=== PATIENT | female | born 1980 | race Caucasian/White ===

== ENCOUNTER 2019-12-28 12:33 | Observation (INO) ==
[2019-12-28 13:15] LABS: BASO# 0.07 X1000 (0.0-0.2); BASO% 0.7 % (0.0-0.8); EOS# 0.23 X1000 (0.0-0.7); EOS% 2.4 % (0.0-10.0); HEMATOCRIT 17.9 % (37.0-47.0); LYMPH% 31.9 % (20.5-51.1); MCH 26.8 PG (27-31); MCHC 29.1 g/dL (33-37); MCV 92.3 FL (81-99); MONO# 0.93 X1000 (0.11-0.59); MONO% 9.7 % (1.7-9.3); MPV 10.1 FL (7.4-10.4); NEUT# 5.25 X1000 (1.4-6.5); PLT 311 X1000 (130-400); RBC 1.94 XMIL (4.2-5.4); RDW 13.7 % (11.5-14.5); WBC 9.56 X1000 (4.8-10.8)
[2019-12-28 13:16] LABS: IMM GRAN# 0.03 X1000 (0.0-0.04); IMM GRAN% 0.3 % (0.0-0.5); LYMPH# 3.05 X1000 (1.2-3.4)
[2019-12-28] MEDS ORDERED: NS 500 ML IV ONE (13:19)
[2019-12-28 13:22] LABS: HEMOGLOBIN 5.2 g/dL (12.0-16.0)
[2019-12-28 13:23] LABS: AGAP 9; ALBUMIN 3.4 g/dL (3.5-5.0); ALKALINE PHOSPHATASE 50 U/L (32-104); BUN 11 mg/dL (8-22); CALCIUM 8.2 mg/dL (8.8-10.2); CHLORIDE 104 mmol/L (98-107); COSMO 278; CREATININE 0.7 mg/dL (0.5-0.9); ESTIMATED GFR > 60; GLUCOSE 117 mg/dL (70-104); GOT 15 U/L (10-30); GPT 9 U/L (10-36); POTASSIUM 4.1 mmol/L (3.5-5.1); SODIUM 139 mmol/L (136-145); TCO2 26 mmol/L (25-35); TOTAL BILIRUBIN < 0.15 mg/dL (0.20-1.00); TOTAL PROTEIN 5.9 g/dL (6.3-8.3)
[2019-12-28 13:37] LABS: ANISOCYTOSIS 1+; EOS 1 % (1-10); HYPOCHROM 2+; LYMPHS 33 % (21-51); MONO 2 % (1-9); POLYCHROM 1+; SEGS 64 % (42-75)
[2019-12-28 13:38] LABS: MICROCYTOSIS 1+
[2019-12-28] MEDS ORDERED: ZOFRAN IV PRN (13:42)
[2019-12-28] MEDS ORDERED: TYLENOL PO PRN (13:42)
[2019-12-28 14:20] LABS: INR 0.93; PROTIME 12.9 Seconds (11.0-16.0)
--- NOTE | 2019-12-28 14:40 | Diag Imaging Result Doc PS360 ---
EXAM: CT ABD/PELVIS W/IV CONT ONLY INDICATION: abd pain, low H H TECHNIQUE: This exam was performed using automated exposure control, adjustment of mA or kV according to patient size, and/or use of iterative reconstruction technique. COMPARISON: 05/09/2013 FINDINGS: There has been a prior cholecystectomy. There are bulky calcified granulomata in the spleen. There is no splenomegaly. The liver, pancreas, and adrenal glands are essentially unremarkable. There are multiple renal cysts, many of which can be seen on the previous unenhanced study. There are several nonobstructing intrarenal stones bilaterally. There is no hydronephrosis. The urinary bladder is grossly unremarkable. The reproductive tract is unremarkable as imaged. There is no evidence of appendicitis. No focal bowel wall thickening or bowel obstruction is appreciated. The remainder of the GI tract is grossly unremarkable. No focal inflammatory changes, free abdominal gas, or free fluid is identified. There is no evidence of acute osseous abnormality. IMPRESSION: 1.Bilateral nonobstructive nephrolithiasis. 2.Other incidental/nonacute findings detailed above. No definite acute pathology by CT. Electronically signed by Caesar Patten 12/28/2019 2:38 PM
[2019-12-28] MEDS ORDERED: ZOFRAN IV ONE (14:41)
[2019-12-28] MEDS ORDERED: MORPHINE IV ONE (14:41)
[2019-12-28 16:09] LABS: OCCULT BLOOD 1 POSITIVE (NEGATIVE); URINE SOURCE CATH
--- NOTE | 2019-12-28 16:11 | HISTORY AND PHYSICAL ---
PRIMARY CARE PROVIDER: Out [facility] OB is Screws. CHIEF COMPLAINT: Patient was called by her doctor for abnormal blood work. HPI: Miss Kim is a 39-year-old female who reports for the last 5 weeks she has been having heavy periods soaking 2 pads frequently, chronic back pain followed by the Pain Clinic, borderline diabetes. Workup in the ED found an hemoglobin and hematocrit of 5 and 17. She was typed and screened will give 2 units of blood and transfer to [facility] for FEEDER WORKER POWER UNIT OPERATOR care. PAST MEDICAL HISTORY: 1. Chronic low back pain followed by the Pain Clinic. 2. Borderline diabetes. PAST SURGICAL HISTORY: Left foot surgery, cholecystectomy, tubal, kidney stone removal. HOME MEDICATIONS: [place], meloxicam, vitamin D. SOCIAL HISTORY: She is going through a divorce, she has 2 children. No tobacco, alcohol or illicit drug use. FAMILY HISTORY: Negative for coronary disease, negative for cancer, father with diabetes. REVIEW OF SYSTEMS: Twelve-point review of systems completely negative except for the items mentioned in HPI. There is no fever no chills, no headache, no shortness of breath, no cough, no sore throat, no recent travel out of country. She has not been around anybody who has traveled out of the country or in the country. No chest pain, no shortness of breath. She is having some abdominal cramps, some generalized weakness. No nausea, vomiting. DIAGNOSTIC DATA: Abdomen and pelvis CT showed bilateral nonobstructive nephrolithiasis . LABORATORY DATA: White count 9, hemoglobin and hematocrit 5 and 17, platelet count is 311,000. Sodium 139, potassium 4.1, BUN 11, creatinine 0.7, blood glucose is 117. ASSESSMENT/PLAN: 1. Menorrhea. Patient's hemoglobin and hematocrit is 5 and 17. She has been intermittently bleeding for the last 5 weeks. She will be given 2 units of blood and sent to [facility] for FEEDER WORKER POWER UNIT OPERATOR assistance. 2. Severe anemia secondary to #1, again, patient has been transfused will be given 2 units. 3. Chronic low back pain followed by Pain Clinic. 4. Borderline diabetes sugars controlled at this time. 5. Further recommendation to follow physician evaluation, laboratory and diagnostic data. Dictated by EH Valentine for Jaime Rosario MD cc: Jaime Rosario MD
[2019-12-28 16:17] LABS: UR EPITHELIAL CELLS <10 /HPF (<10); URINE BACTERIA NEGATIVE /HPF; URINE RBC <10 /HPF (<10); URINE WBC <10 /HPF (<10)
[2019-12-28 16:18] LABS: BILIRUBIN URINE NEGATIVE (NEGATIVE); COLOR YELLOW; GLUCOSE URINE NEGATIVE (NEGATIVE); TURBIDITY URINE CLEAR (CLEAR)
[2019-12-28 16:22] LABS: KETONE URINE NEGATIVE (NEGATIVE)
[2019-12-28 16:23] LABS: BLOOD URINE TRACE (NEGATIVE); LEUKOCYTES URINE NEGATIVE (NEGATIVE); NITRITE URINE NEGATIVE (NEGATIVE); PH URINE 6.5; PROTEIN URINE 20 mg/dL (NEGATIVE); UROBILINOGEN URINE NORMAL (NORMAL)
--- NOTE | 2019-12-28 16:23 | PROVIDER DOCUMENTATION ---
This chart was entered by Idania Cummings Scribe, acting as scribe for Man Wagoner CRNP. HPI-General Adult - General Chief Complaint: Abnormal Lab[s] Stated Complaint: LOW BLOOD - SENT BY Time Seen by Provider: 12/28/19 12:46 Source: patient Allergies/Adverse Reactions: Patient Allergies Allergy/AdvReac Type Severity Reaction Status Date / Time No Known Allergies Allergy Verified 12/28/19 13:03 Home Medications: Home Medication List Medication Instructions Recorded Confirmed Last Taken Type Hydrocodone/Acetaminophen [Max 1 tab PO Q6H PRN PRN #12 tablet 07/28/18 12/28/19 Unknown Rx 7.5-325 Tablet] Meloxicam [Mobic] 1 tab PO DAILY 12/28/19 12/28/19 Unknown History - History of Present Illness -Gen Adult Nature of Presenting Problems: 39 yowf presents to the ed per dr fletcher instruction for intermittent vaginal bleeding for 5 weeks and a HH 5.2 pt reports she was seeing dr phan but she left the practice and does not have a forestry and wildlife manager now. pt sts she was placed on BC which did not improve the vaginal bleeding Location of Pain/Injury: reports: abdomen Quality of Pain: reports: aching Severity: reports: mild Onset/Duration: reports: other (5 weeks) Timing: reports: still present, intermittent Context/Activities at Onset: reports: light activity Modifying Factors: improves with: nothing Associated Symptoms: reports: denies symptoms Similar Symptoms Previously?: Yes Recently seen or treated by another doctor?: Yes (forestry and wildlife manager and dr voss PMD) Review of Systems - Adult - REVIEW OF SYSTEMS - ADULT Constitutional: denies: chills, fever Eyes: reports: no symptoms reported Ears, Nose, Mouth & Throat: reports: no symptoms reported Cardiovascular: denies: chest pain, palpitations Respiratory: denies: cough, shortness of breath, wheezing Gastrointestinal: reports: see HPI, abdominal pain. denies: diarrhea, nausea, vomiting Genitourinary: reports: other (vaginal bleeding) Musculoskeletal: denies: back pain, neck pain Integumentary: reports: no symptoms reported Neurological: denies: dizziness/vertigo, headache/migraines Psychiatric: reports: no symptoms reported Endocrine: reports: no symptoms reported Hematologic/Lymphatic: reports: see HPI, low blood count Allergic/Immunologic: reports: no symptoms reported All Other Systems: Reviewed and Negative Past History - Adult - PAST MEDICAL HISTORY-ADULT Review of Records: reports: Old Records Reviewed, Nursing Assessment Review, Medications Reviewed, Social history reviewed & non-contributory. Major Childhood Illnesses: reports: denies history Cardiovascular: reports: denies history Respiratory: reports: denies history Gastrointestinal: reports: denies history Obstetrical/Gynecological: reports: denies history Genitourinary: reports: kidney stones Musculoskeletal: reports: chronic pain Neurological: reports: other (neuropathy in feet) Psychiatric: reports: anxiety, depression Endocrine/Immune: reports: Diabetes Diabetes Type: Type 2 Other Conditions: reports: denies history - PRIOR SURGERIES/PROCEDURES Surgical/Procedure History: reports: cholecystectomy, orthopedic (extremity) - PRIOR HOSPITALIZATIONS Prior Hospitalizations: reports: none - IMMUNIZATION STATUS Childhood Immunizations: See Nurse Assessment Flu Vaccine: See Nurse Assessment - FAMILY HISTORY Family History: reviewed, not pertinent - SOCIAL HISTORY Smoking: denies Substance Use: denies Alcohol Use Frequency: never Living Situation: family Physical Exam-General - PHYSICAL EXAM-ADULT Initial Vital Signs Reviewed: Yes - CONSTITUTIONAL General Appearance: appears well, alert, no apparent distress (nontoxic in apearance), obese - EYES Eyes: PERRL/EOMI, pink conjunctivae - HEAD, EARS, NOSE, MOUTH & THROAT HENMT: moist mucous membranes - NECK Neck: non-tender, full range of motion, supple, normal inspection - RESPIRATORY Respiratory: chest non-tender, lungs clear, normal breath sounds - CARDIOVASCULAR Cardiovascular: normal peripheral pulses, tachycardia (105) - CHEST (BREASTS) Chest/Breast: deferred - GASTROINTESTINAL (ABDOMEN) Abdominal Exam: normal bowel sounds, non tender, soft, tenderness (left suprapaubic). negative: guarding, rigid, rebound - GENITOURINARY Female Genitalia/Pelvic Exam: external exam normal, active bleeding, blood, other (large clots and heavy active bleeding). negative: herpes-like ulcerations Rectal Exam: normal exam, normal rectal tone. negative: hemorrhoids, mass, tenderness Hemoccult Exam: heme positive stool - LYMPHATIC Lymphatic: no adenopathy - MUSCULOSKELETAL Back Exam: no CVA tenderness, no vertebral tenderness Extremity: normal range of motion, non-tender, normal gait, normal inspection - SKIN Integumentary: warm/dry, pallor - NEUROLOGIC Neurologic: grossly normal - PSYCHIATRIC Psych/Mental Status: normal mood/affect, normal thought content, normal thought process, oriented x 3 Progress - PLAN OF CARE/RESULTS Progress/Plan/Lab Results: Vital Signs - 8 hr 12/28/19 12:38 Temperature 98 F Pulse Rate 105 H Respiratory Rate 18 Blood Pressure 99/68 O2 Sat by Pulse Oximetry 100 Orders Category Date Time Status CT ABD/PELVIS W/IV CONT ONLY [CT] Stat Exams 12/28/19 13:03 Ordered CBC WITH DIFF [HEME] Stat Lab 12/28/19 12:55 Results COMPREHENSIVE METABOLIC PANEL [CHEM] Stat Lab 12/28/19 12:55 Received TYPE & SCREEN [BBK] Stat Lab 12/28/19 12:55 Received URINALYSIS W/POSS RFLX CULT [URINALYSIS] Stat Lab 12/28/19 12:48 Uncollected Result Diagrams: 12/28/19 12:55 12/28/19 12:55 - REASSESSMENT Reassessment #1 Time Reassessed: 14:49 (Pt tolerated vaginal bleeding well. Made aware of need for admission. ) - CT/MRI 1 CT Study: Abdomen, Pelvis Impression: See EMR Report (EXAM: CT ABD/PELVIS W/IV CONT ONLY INDICATION: abd pain, low H H TECHNIQUE: This exam was performed using automated exposure control, adjustment of mA or kV according to patient size, and/or use of iterative reconstruction technique. COMPARISON: 05/09/2013 FINDINGS: There has been a prior cholecystectomy. There are bulky calcified granulomata in the spleen. There is no splenomegaly. The liver, pancreas, and adrenal glands are essentially unremarkable. There are multiple renal cysts, many of which can be seen on the previous unenhanced study. There are several nonobstructing intrarenal stones bilaterally. There is no hydronephrosis. The urinary bladder is grossly unremarkable. The reproductive tract is unremarkable as imaged. There is no evidence of appendicitis. No focal bowel wall thickening or bowel obstruction is appreciated. The remainder of the GI tract is grossly unremarkable. No focal inflammatory changes, free abdominal gas, or free fluid is identified. There is no evidence of acute osseous abnormality. IMPRESSION: 1.Bilateral nonobstructive nephrolithiasis. 2.Other incidental/nonacute findings detailed above. No definite acute pathology by CT. Electronically signed by Caesar Patten 12/28/2019 2:38 PM) - CONSULTS/PCP/HOSPITALIST Notification #1 *Consult/PCP/Hospitalist*: Dr Feliciano Time Discussed: 13:30 Consult Disposition: Will see in ED, Admit #2 Consult: Dr Monet Time Discussed: 14:48 (states to consult her. No further recommendations) Consult Disposition: Admit Departure - Departure Date of Disposition Decision: 12/28/19 Time of Disposition Decision: 14:44 DIAGNOSIS: Vaginal bleeding, Low hemoglobin and low hematocrit Disposition: ADMITTED INPATIENT 09 Certified Medical Emergency: Emergent Condition: Fair - Critical Care Note This patient required my direct & personal management of CC.: Yes Total Time (mins): 36 Critical Care Statement: This patient required my direct personal management to treat or rule out processes, the absence of which, could potentiallly result in sudden, clinically significant life or limb threatening deterioration. Attestation - Physician/ MANUEL Attestation Patient care was provided by Advanced Practice Provider:: Yes Advanced Practice Provider:: Man Wagoner Advanced Practice Provider documentation review:: The Mid-level provider documentation, treatment plan and medical decision making was reviewed by the physician who agrees with all treatment and medical decision making by the MLP. The physician spent face to face time with patient:: No Advanced Practice Provider documentation review:: Supervising physician onsite and consulted in the evaluation and care of this patient. The physician did not have a face to face encounter with the patient. This chart was documented by the indicated scribe, (Idania Cummings Scribe) and accurately reflects the services I performed and decisions made by me, Man Wagoner CRNP, as attested by the provider's signature.
[2019-12-28] MEDS: NORCO-7.5 PO PRN (17:39)
[2019-12-28] MEDS ORDERED: NS 500 ML ONE (17:59)
[2019-12-28] MEDS: PROMETRIUM PO SCH ×2 (19:53→23:08)
--- NOTE | 2019-12-28 20:11 | CONSULTATION ---
DATE OF CONSULTATION: 12/28/2019 Ms. Kim is a 39-year-old female that was admitted to the ER with vaginal bleeding and anemia. The patient states that her period started about 5 weeks ago and has not stopped. Her period has been regular until a few months ago. She was evaluated by NURSERY SUPERVISOR with a biopsy that was negative and started on control pills but pills did not work on. However, she has not seen another COAT ROOM ATTENDANT since. The patient presented to the ER. Hemoglobin was 5.2. She was given a blood transfusion. She denies any pain. She did note a lot of clots and cramping when her bleeding occurs. Presently, she is not acutely bleeding. PAST MEDICAL HISTORY: She denies except having kidney stones. PAST SURGICAL HISTORY: She has had left foot surgery, kidney stones. SOCIAL HISTORY: She does not smoke. No alcohol. MEDICATIONS: She takes vitamin D, [place] and nonsteroidal for back pain. Vital signs: Temperature is 98.6 degrees, blood pressure is 121/68, pulse of 78 . HEENT: Unremarkable. Her abdomen was benign, no guarding, no rebound. Pelvic exam deferred per patient. She was examined in the ER she stated and did not want to be examined at this time since she is bleeding. Extremities: Negative. LABORATORY DATA: Per chart. ASSESSMENT: 39-year-old female with perimenopausal bleeding which is what I suspect. Negative workup in the past, failed control pills. Today I will start her on some Methergine. No contraindication to these medicines. She can stay on it for 3 days p.o. and in addition started Prometrium 200 mg at bedtime. I recommended that she follow up with Dr. Kamara and her team for gynecology followup. Possible ablation, IUD for another method of treatment. For discharge she will continue on the Prometrium and Methergine as needed Methergine for up to 3 days and the Prometrium until followup for her COAT ROOM ATTENDANT appointment. CAT scan reviewed and no mention of uterus size. Radiologist taking a 2nd look at this report to follow. cc: MD BLAKE Moss
--- NOTE | 2019-12-29 00:17 | HISTORY AND PHYSICAL ---
ADDENDUM: Patient is a 39-year-old female who presented to the hospital with significant vaginal bleeding for the past 5 weeks. She does not currently have a vibrator equipment tester. She is anemic. We are going to admit her, transfuse. We will discuss with Gynecology further options and we will follow. Currently, she is awake, alert. She is safe and in no distress. cc: Jaime Rosario MD
[2019-12-29] MEDS: NORCO-7.5 PO PRN ×4 (04:07→23:19)
[2019-12-29 06:46] LABS: HEMATOCRIT 22.7 % (37.0-47.0); HEMOGLOBIN 6.9 g/dL (12.0-16.0); MCH 27.5 PG (27-31); MCHC 30.4 g/dL (33-37); MCV 90.4 FL (81-99); MPV 10.6 FL (7.4-10.4); RBC 2.51 XMIL (4.2-5.4); RDW 13.6 % (11.5-14.5); WBC 8.15 X1000 (4.8-10.8)
[2019-12-29 06:52] LABS: INR 1.08; PROTIME 14.1 Seconds (11.0-16.0)
[2019-12-29 06:55] LABS: AGAP 6; ALB/GLOB RATIO 1.2; ALKALINE PHOSPHATASE 50 U/L (32-104); BUN 9 mg/dL (8-22); CALCIUM 7.6 mg/dL (8.8-10.2); CHLORIDE 107 mmol/L (98-107); COSMO 280; CREATININE 0.6 mg/dL (0.5-0.9); ESTIMATED GFR > 60; GLUCOSE 101 mg/dL (70-104); GOT 11 U/L (10-30); GPT 8 U/L (10-36); POTASSIUM 4.3 mmol/L (3.5-5.1); SODIUM 141 mmol/L (136-145); TCO2 28 mmol/L (25-35); TOTAL BILIRUBIN 0.16 mg/dL (0.20-1.00); TOTAL PROTEIN 5.5 g/dL (6.3-8.3)
[2019-12-29] MEDS ORDERED: NS 500 ML IV ONE (10:24)
[2019-12-29] MEDS ORDERED: CAFFEINE/SODIUM BENZOATE 500 MG in NS 1,000 ML IV ONE (11:00)
--- NOTE | 2019-12-29 11:28 | PROGRESS NOTE ---
DATE: 12/29/2019 SUBJECTIVE: Patient reports she is bleeding. She received 2 units of blood. Hemoglobin is very low 6.9. No other complaints noted. OBJECTIVE: Vital Signs: Temperature 98.2 degrees, heart rate 86, respiratory 16 blood pressure 103/54, O2 saturation 99% on room air. General: This is a 39-year-old female lying in bed, in no acute distress. Cardiovascular: S1, S2 heard. No murmurs, gallops, or rubs. Regular rate and rhythm. Respiratory: Clear bilaterally to auscultation. No work of breathing or using accessory muscles. Abdomen: Soft, nontender to palpation. Bowel sounds present. No organomegaly. No clubbing cyanosis or edema. Peripheral pulses present in both legs. Neurological: Patient alert and oriented x3. Moves 4 extremities. LABORATORY DATA: Reviewed. ASSESSMENT AND PLAN: 1. Menorrhea. Her hemoglobin was 5.0 at admission and after 2 units of blood hemoglobin is still low of 6.9. We are going to transfuse 1 unit of blood. We will check hemoglobin tomorrow. Because she is still bleeding we will continue to keep this patient here in the hospital. Patient is on progesterone. We will continue to monitor. 2. Severe anemia secondary to condition #1. We are transfusing 1 unit of blood. 3. Chronic low back pain. Evaluated by the pain clinic. 4. Four borderline diabetes. Sugars are well controlled at this time. DISPOSITION: We will continue current management. cc: Keyshawn Calderon MD
[2019-12-29] MEDS: METHERGINE PO SCH ×3 (11:49→18:39)
--- NOTE | 2019-12-29 17:45 | CONSULTATION ---
DATE OF CONSULTATION: 12/29/2019 HISTORY OF PRESENT ILLNESS: The patient is a 39-year-old white female, G2, P2, who presents to the emergency room after having a bleeding episode that encompassed 5 weeks total. The patient reports one other time that she has had this type of heavy bleeding and that was about 3 months ago. PAST MEDICAL HISTORY: Significant for chronic back pain. PAST SURGICAL HISTORY: Significant for cholecystectomy, left foot surgery, bilateral tubal ligation, and right kidney stone removal. MUD TANK OPERATOR HISTORY: Menarche at age 11. PAST OBSTETRIC HISTORY: G2, P2. Spontaneous vaginal delivery x2. REVIEW OF SYSTEMS: All systems reviewed and noncontributory. FAMILY HISTORY: Significant for diabetes mellitus. SOCIAL HISTORY: Tobacco use none. Alcohol use none. MEDICATIONS: 1. [place] 7.5 mg for chronic back pain. 2. Meloxicam for problems with her feet. ALLERGIES: No known drug allergies. PHYSICAL EXAMINATION: Vital Signs: Height 5 feet 6 inches, weight 265 pounds. Temperature 98 degrees, blood pressure 121/68, pulse 88, respirations 16. HEENT: Pupils equal, round, reactive to light and accommodation. Extraocular movements intact. Oropharynx clear. Neck: Supple. No thyromegaly. Lungs: Clear to auscultation. Heart: Regular rate and rhythm. Abdomen: Obese, nontender. Patient with mild lower abdominal discomfort to deep palpation. Pelvic: On pelvic, bimanual was performed and this revealed some blood in the vaginal vault, but could not determine if the uterus was significantly enlarged due to the patient's body habitus. Unable to appreciate any adnexal masses nor pain. Extremities: Mild lower extremity edema was noted. The patient had a CT scan that remarked on the normal uterus and normal ovaries. LABORATORY STUDIES: Her initial hemoglobin was 5.2. She was transfused 2 units and then improved to 6.9 hemoglobin, but reports still having some bleeding, and the hospitalist is going to transfuse more blood. Dr. Monet had initiated progesterone and Methergine, and will continue at the present time. Will monitor CBC as well. ASSESSMENT AND PLAN: A 39-year-old white female, 2, para 2, with menorrhagia and severe anemia, requiring blood transfusions. At present time, will continue with what Dr. Monet started, the Methergine and progesterone, and would also add a pelvic ultrasound for closer evaluation of pelvic organs. We will follow along at present time. cc: Acosta Ramos III, MD
--- NOTE | 2019-12-29 18:06 | Diag Imaging Result Doc PS360 ---
EXAM: US PELVIC NON-OB COMPLETE INDICATION: Menorrhagia, severe ANEMIA TECHNIQUE: The endovaginal probe was declined by the patient. Only the transabdominal probe was used. COMPARISON: None. FINDINGS: The uterus is grossly normal in echotexture measuring 10.8 x 7.4 x 6.2 cm. The endometrium measures 9 mm in thickness. The left ovary is not identified. There is a 2.2 cm right ovarian cyst. The right ovary is normal in echotexture, otherwise. The right ovary measures 3.2 cm in the greatest dimension. No solid adnexal masses or pelvic free fluid is appreciated. IMPRESSION: Small right ovarian cyst and nonvisualization of the left ovary. Unremarkable pelvic ultrasound, otherwise. Electronically signed by Caesar Patten 12/29/2019 6:04 PM
[2019-12-29] MEDS: PROMETRIUM PO SCH (20:35)
[2019-12-30] MEDS: NORCO-7.5 PO PRN (05:55)
[2019-12-30 06:35] LABS: HEMATOCRIT 28.7 % (37.0-47.0); HEMOGLOBIN 9.3 g/dL (12.0-16.0); MCH 28.9 PG (27-31); MCHC 32.4 g/dL (33-37); MCV 89.1 FL (81-99); MPV 10.7 FL (7.4-10.4); RBC 3.22 XMIL (4.2-5.4); RDW 13.8 % (11.5-14.5); WBC 10.4 X1000 (4.8-10.8)
[2019-12-30 06:51] LABS: AGAP 9; BUN 7 mg/dL (8-22); CALCIUM 8.3 mg/dL (8.8-10.2); CHLORIDE 105 mmol/L (98-107); COSMO 278; CREATININE 0.7 mg/dL (0.5-0.9); ESTIMATED GFR > 60; GLUCOSE 102 mg/dL (70-104); POTASSIUM 4.1 mmol/L (3.5-5.1); SODIUM 140 mmol/L (136-145); TCO2 26 mmol/L (25-35)
[2019-12-30 08:31] VITALS: BP 130/83
--- NOTE | 2019-12-30 12:15 | DISCHARGE SUMMARY ---
ADMISSION DATE: 12/28/2019 DISCHARGE DATE: 12/30/2019 PRIMARY CARE PHYSICIAN: Johny Majano. CONSULTATIONS: Dr. Rebecca Monet. PERTINENT PROCEDURES: 1. Abdomen and pelvis CT. Bilateral nonobstructing nephrolithiasis. 2. Pelvic ultrasound. Small right ovarian cyst and nonvisualization of the left ovary. Unremarkable pelvic ultrasound otherwise. DISCHARGE DIAGNOSES: 1. Perimenopausal bleeding. Negative workup. Failed control pills. She was started on Methergine 3 days p.o. in addition to Prometrium 200 mg at bedtime. Recommend she follow up with Dr. Kamara and her team for gynecology follow-up for possible ablation of intrauterine device and another method of treatment. 2. Severe anemia secondary to #1. She was transfused with 4 units of packed red blood cells. Currently hemoglobin and hematocrit is holding steady at 9 and 28. Hemodynamically stable. 3. Chronic low back pain, followed by the Pain Clinic. 4. Borderline diabetes. Sugar is controlled. HOSPITAL COURSE: Briefly, Ms. Kim is a 39-year-old female who reports a past medical history of chronic low back pain and borderline diabetes, who reported heavy periods for the last 5 weeks, soaking 2 pads frequently. Workup in the ED found an hemoglobin and hematocrit of 5 and 17. She was typed and screened, was given a total of 4 units of blood. She was transferred from [facility] to [facility] for MEDIEVAL ENGLISH LITERATURE PROFESSOR care. They initiated her on Methergine and progesterone as well as evaluated her abdominal CT and pelvic ultrasound. They recommend her follow up with her MEDIEVAL ENGLISH LITERATURE PROFESSOR for further care and treatment. She has had a stable hospital course and is being discharged home today. VITAL SIGNS: Temperature is 97.8 degrees, heart rate 85, respirations 16, blood pressure 130/83, O2 is 98% on room air. DISCHARGE DIET: Regular. DISCHARGE MEDICATIONS: 1. Mobic 7.5 mg tablet p.o. daily. 2. Progesterone 200 mg p.o. at bedtime. 3. Icar-C 1 each p.o. daily. 4. [place] 7.5/325 one tablet p.o. q.6 hours p.r.n. 5. Methergine, she has already had her 3 days. FOLLOWUP: Ms. Kim is being discharged back home with self care. She is to follow up with her MEDIEVAL ENGLISH LITERATURE PROFESSOR for further evaluation and treatment. She can return to the ED or call 911 for any worsening of symptoms. Dictated by EH Valentine for Keyshawn Calderon MD Addendum: Patient seen and examined by myself. Agree with EH note. It reflects my assessment and plan. Patient is being discharged in stable condition. Will be seen by OB-FENCE REPAIRMAN in a week. cc: Keyshawn Calderon MD MTDD
== END 2019-12-30 11:18 | disposition home or self-care (01) ==
LOC: P.ED 12:33 → 4N 12:33 → SUATTDRO 12:34
PROVIDERS: ATTEND Internal Medicine